=== PATIENT | female | born 2000 | race Caucasian/White ===

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

== ENCOUNTER → 2022-03-12 09:51 | Outpatient (BNV) | payer MEDICAID, SELFPAY | PROVIDERS: PCP Internal Medicine; Visit Provider Internal Medicine Medical Oncology | DX: D75.839 Thrombocytosis, unspecified (principal) | CPT/HCPCS: 99203; 99213 ==

== ENCOUNTER → 2023-05-13 09:27 | Outpatient (BNVA) | payer MEDICAID, SELFPAY | PROVIDERS: PCP Internal Medicine; Visit Provider Physician Assistant Surgical ==

== ENCOUNTER 2023-06-17 08:10 | Outpatient (AMB) | payer MEDICAID, SELFPAY ==
--- NOTE | 2023-06-17 08:11 | A.OFFVIS_ITS ---
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 9.30pm (dessert) Exercise: none Fluids: Coffee: 2/wk (Kacie Donuts), tea: none, soda: Regular Pepsi: a lot a day, juice: none, ETOH: 1 drink/week PFSH Medical History (Updated 06/17/23 @ 08:17 by Rafi Smith MD) Back pain Depression GERD (gastroesophageal reflux disease) Hypertension Morbid obesity Surgical History (Updated 06/17/23 @ 08:17 by Rafi Smith MD) Hx laparoscopic cholecystectomy Assessment & Plan Assessment & Plan (1) Morbid obesity: Code(s): E66.01 - Morbid (severe) obesity due to excess calories Plan: 1.? Plan for lap sleeve gastrectomy. If diaphragmatic or ventral hernias are present at time of surgery, these will be repaired laparoscopically as well. Risks and complications were discussed in detail including possible conversion to an open procedure, anastomotic leak, bleeding requiring transfusion, small cirilo wel obstruction, , DVT and pulmonary embolism, cardiac, or pulmonary complications, as cloth spreader complications such as anastomotic ulcer, insufficient weight loss and vitamin deficiencies. I emphasized the importance of close follow-up, adherence to instructions and good communication. 2. Nutritional counseling. Start with 2 Isoure INFUSION protein (buy at [employer], or [employer]) shakes (HALF scoop EACH in 8oz water) at 7am-9am and 10am-12pm, 1 protein bar (Zone Perfect protein bars, buy at [employer], ?[employer], [employer], or [employer]) at 2pm-4pm, dinner at 5pm (8 forks of protein and 8 forks of salad/vegetables) and one more protein bar after dinner at 7pm-9pm. Meal to include lean meat (beef, fish, pork, turkey, chicken), or bruneian yogurt, or egg whites, or beans with a salad with olive oil and fruits (berries, pears, apples, kiwi). Avoid salt, breads, potatoes, rice, pasta, desserts. 3. Each shake would be drunk slowly, like coffee in a period of 2 hours. 4. Cut each bar in 4 pieces and eat each piece in 30min ?to make each bar last 2 hours. 5. I emphasized the importance of measuring accurately the food portion and measure it when serving the food in plate 6. The meal portions include 8 full-size forks of meat and 8 full-size forks of salad. You always eat the meat portion but you can replace up to 5 forks for salad/vegetables with rice, potatoes or pasta, or a fruit ?if you like. The less you do it the better weight loss will be. 7. One full-size fork is what it can be scooped on the fork without falling aside and not what can be bit with the fork. Use regular forks like those you find in a typical restaurant. 8.? Please send me weight measurements as soon as possible and then once a week. Always include your diet and exercise plan. 9. When you join the Gym, start treadmill with an incline of 2.0 and speed of 3.0. Increase incline by 1 every 3 min to a max incline of 8.0, stay 3min at 8.0 and then return to 2.0 and repeat same steps until calorie goal is met. Goal is to burn 2000 calories per week on exercise, which means either 300 calories daily, or 400 calories 5 days per week, or 500 calories 4 days per week, or 650 calories 3 days per week. Start also weight exercises with 20-30lbs for chest/shoulders/abdomen and 40-50lbs for thighs doing 2 sets of 15 repetitions each. 10. Alternatively start walking outside daily, tracking calories with a goal of 300 calories per day, daily. Goal is to burn 2000 calories per week on active walking. 11. Alternatively purchase a stationary bike, elliptical or treadmill at home that can track calories. Let me know if you do so I can give you an exercise plan. 12.?It is important of avoiding and for at least 18 months postoperatively and has been discussed at the infosession. 13. Goal is to lose at least 1.5-2lbs per week 14. Goal to lose 10% of your weight before surgery, which is about 23lbs. Ultimate weight goal: 208lbs before surgery 15. Please follow the diet plan exactly without any change. If you don't like something about the plan or you feel hungry you need to communicate with me so I can help you revise the plan. You should not change the plan yourself. (2) Depression: Code(s): F32.A - Depression, unspecified (3) GERD (gastroesophageal reflux disease): Code(s): K21.9 - Gastro-esophageal reflux disease without esophagitis (4) Hypertension: Code(s): I10 - Essential (primary) hypertension (5) Back pain: Code(s): M54.9 - Dorsalgia, unspecified Orders: Orders Vitamin B12 and Folate Today E66.01 - Morbid (severe) obesity due to excess calories, I10 - Essential (primary) hypertension, K21.9 - Gastro-esophageal reflux disease without esophagitis, M54.9 - Dorsalgia, unspecified Comprehensive Met. Panel Today E66.01 - Morbid (severe) obesity due to excess calories, I10 - Essential (primary) hypertension, K21.9 - Gastro-esophageal reflux disease without esophagitis, M54.9 - Dorsalgia, unspecified C Reactive Protein Today E66.01 - Morbid (severe) obesity due to excess calories, I10 - Essential (primary) hypertension, K21.9 - Gastro-esophageal reflux disease without esophagitis, M54.9 - Dorsalgia, unspecified Ferritin Today E66.01 - Morbid (severe) obesity due to excess calories, I10 - E ssential (primary) hypertension, K21.9 - Gastro-esophageal reflux disease without esophagitis, M54.9 - Dorsalgia, unspecified Hemoglobin A1c Today E66.01 - Morbid (severe) obesity due to excess calories, I10 - Essential (primary) hypertension, K21.9 - Gastro-esophageal reflux disease without esophagitis, M54.9 - Dorsalgia, unspecified Insulin Today E66.01 - Morbid (severe) obesity due to excess calories, I10 - Essential (primary) hypertension, K21.9 - Gastro-esophageal reflux disease without esophagitis, M54.9 - Dorsalgia, unspecified IRON PROFILE Today E66.01 - Morbid (severe) obesity due to excess calories, I10 - Essential (primary) hypertension, K21.9 - Gastro-esophageal reflux disease without esophagitis, M54.9 - Dorsalgia, unspecified Lipid Panel Today E66.01 - Morbid (severe) obesity due to excess calories, I10 - Essential (primary) hypertension, K21.9 - Gastro-esophageal reflux disease without esophagitis, M54.9 - Dorsalgia, unspecified PTHI Today E66.01 - Morbid (severe) obesity due to excess calories, I10 - Essential (primary) hypertension, K21.9 - Gastro-esophageal reflux disease without esophagitis, M54.9 - Dorsalgia, unspecified TSH reflex Free T4 Today E66.01 - Morbid (severe) obesity due to excess calorie s, I10 - Essential (primary) hypertension, K21.9 - Gastro-esophageal reflux disease without esophagitis, M54.9 - Dorsalgia, unspecified Vitamin A Today E66.01 - Morbid (severe) obesity due to excess calories, I10 - Essential (primary) hypertension, K21.9 - Gastro-esophageal reflux disease without esophagitis, M54.9 - Dorsalgia, unspecified Vitamin B1 Today E66.01 - Morbid (severe) obesity due to excess calories, I10 - Essential (primary) hypertension, K21.9 - Gastro-esophageal reflux disease without esophagitis, M54.9 - Dorsalgia, unspecified Vitamin D 25-OH Total Today E66.01 - Morbid (severe) obesity due to excess calories, I10 - Essential (primary) hypertension, K21.9 - Gastro-esophageal reflux disease without esophagitis, M54.9 - Dorsalgia, unspecified Zinc Today E66.01 - Morbid (severe) obesity due to excess calories, I10 - Essential (primary) hypertension, K21.9 - Gastro-esophageal reflux disease without esophagitis, M54.9 - Dorsalgia, unspecified ECG 12 lead EKG Today E66.01 - Morbid (severe) obesity due to excess calories, I10 - Essential (primary) hypertension, K21.9 - Gastro-esophageal reflux disease without esophagitis, M54.9 - Dorsalgia, unspecified FL upper GI w air Today E66.01 - Morbid (severe) obesity due to excess calories, I10 - Essential (primary) hypertension, K21.9 - Gastro-esophageal reflux disease without esophagitis, M54.9 - Dorsalgia, unspecified Complete Blood Count Auto Diff Today E66.01 - Morbid (severe) obesity due to excess calories, I10 - Essential (primary) hypertension, K21.9 - Gastro- esophageal reflux disease without esophagitis, M54.9 - Dorsalgia, unspecified H Pylori Breath Test Today E66.01 - Morbid (severe) obesity due to excess calories, I10 - Essential (primary) hypertension, K21.9 - Gastro-esophageal reflux disease without esophagitis, M54.9 - Dorsalgia, unspecified US abdomen comp w elastography Today E66.01 - Morbid (severe) obesity due to excess calories, I10 - Essential (primary) hypertension, K21.9 - Gastro- esophageal reflux disease without esophagitis, M54.9 - Dorsalgia, unspecified XR chest 2V Today E66.01 - Morbid (severe) obesity due to excess calories, I10 - Essential (primary) hypertension, K21.9 - Gastro-esophageal reflux disease without esophagitis, M54.9 - Dorsalgia, unspecified Referrals Behavioral Health Referral E66.01 - Morbid (severe) obesity due to excess calories, I10 - Essential (primary) hypertension, K21.9 - Gastro-esophageal reflux disease without esophagitis, M54.9 - Dorsalgia, unspecified Nutrition/Dietitian Referral E66.01 - Morbid (severe) obesity due to excess calories, I10 - Essential (primary) hypertension, K21.9 - Gastro-esophageal reflux disease without esophagitis, M54.9 - Dorsalgia, unspecified Telehealth Telehealth Location of provider rendering services: practice address Location of patient: address on file Patient Identification confirmed using: Name, : Yes Telehealth method: voice only Patient verbally consented to treatment: Yes Patient verbally consented to billing insurance company: Yes Patient informed of any privacy concerns related to visit: Yes Minutes spent on Phone/Video with Pt.: 45 Coding Level of Care Code Tele New Pt Level 4 (27561) Diagnoses Morbid obesity E66.01 Depression F32.A GERD (gastroesophageal reflux disease) K21.9 Hypertension I10 Back pain M54.9 Time Spent (min) 45
[2023-06-17 08:27] VITALS: BP 120/69; BMI 40.9
== END 2023-06-17 08:51 | disposition home or self-care (01) ==
LOC: HO.HBS 08:10
PROVIDERS: Visit Provider Surgery
DX: E66.01 Morbid (severe) obesity due to excess calories (principal); F32.A Depression, unspecified; K21.9 Gastro-esophageal reflux disease without esophagitis; I10 Essential (primary) hypertension; M54.9 Dorsalgia, unspecified
CPT/HCPCS: 99204

== ENCOUNTER → 2023-06-17 08:10 | Outpatient (BNVA) | payer MEDICAID, SELFPAY | PROVIDERS: Visit Provider Surgery ==

== ENCOUNTER → 2023-07-17 08:02 | Outpatient (BNVA) | payer MEDICAID, SELFPAY | PROVIDERS: PCP Student in an Organized Health Care Education/Training Program; Visit Provider Surgery ==

== ENCOUNTER 2023-07-21 13:57 | Outpatient (AMB) | payer MEDICAID, SELFPAY ==
--- NOTE | 2023-07-21 13:51 | A.OFFVIS_ITS ---
Intake Intake Visit Reasons: VIDEO Initial Nutrition SWL Allergies No Known Allergies [No Known Allergies*] Allergy (Verified 06/17/23 08:56) HPI Nutrition Presentation Reason for consult elevated BMI Diet Assmnt Details Hasn't made any changes - reports she is struggling a lot with depression. She tends to skip meals all day, then eat a lot at night (reports emotional eating) . She is planning to purchase the protein shakes today and begin following her plan. I explained how skipping meals all day makes it harder to work on emotional eating. She has no questions or concerns today. Patient reports her phone has not been receiving phone calls, she has not received any text messages, voice mails, phone calls from our office., she reports she did not know about the classes. She shares she has 3 children, 5 year old, 2 years old, and 6 month old Dietary counseling reduction Who buys your food self Who prepares/cooks your food self Meal frequency regular: dinner and snacks (reports emotional eating at night ) and never: breakfast and lunch Lifestyle Emotional Eating Reports stress, depression and anxiety Diagnosis Nutrition problem #1 overweight/obesity As related to (etiology) #1 excess energy intake and physical inactivity As evidenced by (sign/symptom) #1 high BMI Monitoring/Goals Nutrition problem monitoring total energy intake, level of knowledge/skill, total PRO intake, total CHO intake and weight Outcome progress verbalized understanding Learning/Education Readiness to learn fair Stages of change preparation Educational materials provided Yes Most Recent Diabetes Results: Creatinine 0.68 mg/dL (0.5-1.4) 03/12/22 Blood Urea Nitrogen 11 mg/dL (9-16) 03/12/22 Sodium 138 mmol/L (135-145) 03/12/22 Potassium 4.5 mmol/L (3.3-5.1) 03/12/22 Chloride 105 mmol/L (96-108) 03/12/22 Carbon Dioxide 24 mmol/L (22-29) 03/12/22 Calcium 9.9 mg/dL (8.4-10.2) 03/12/22 AST 16 U/L (5-31) 03/12/22 ALT 14 U/L (0-31) 03/12/22 Total Protein 7.7 g/dL (6.5-8.0) 03/12/22 Albumin 4.3 g/dL (3.5-5.0) 03/12/22 PFSH Medical History (Updated 06/17/23 @ 08:56 by Sammie Quintanilla) Hypertension GERD (gastroesophageal reflux disease) Back pain Depression Morbid obesity Depression Anxiety Surgical History (Updated 06/17/23 @ 08:56 by Sammie Quintanilla) Hx laparoscopic cholecystectomy Hx of Hx of cholecystectomy Family History Mother Hx of anemia of chronic renal failure Paternal Grandmother History of anxiety History of depression History of arthritis Hx of diabetes mellitus Social History (System 06/17/23 @ 08:56 by Sammie Quintanilla) Household Members: Children Both parents involved: No Housing: Apartment Are you a primary career guidance technician to a significant other at home: No Do you presently have visiting nurse or other home services: No Alcohol intake: former Patient Tobacco Use Status: Never used Tobacco Substance Use Type: Marijuana service: No Current occupational status: unemployed Gender identity: Female Female Reproductive History Menstrual Age of Menarche: 13 Assessment & Plan Assessment & Plan (1) Morbid obesity: Code(s): E66.01 - Morbid (severe) obesity due to excess calories Patient Instructions: explained that she should start her nutrition plan marcin, then we can help her address challenges more effectively. I will discuss with catrina to attempt to reach pt again to discuss check list, follow-up with Dr. Smith future scheduling of appts. Patient shares she struggles with sig depression and will benefit from intake with Maye Nassar Telehealth Location of provider rendering services: practice address Location of patient: address on file Patient Identification confirmed using: Name, : Yes Telehealth method: voice only Patient verbally consented to treatment: Yes Patient verbally consented to billing insurance company: Yes Patient informed of any privacy concerns related to visit: Yes Minutes spent on Phone/Video with Pt.: 30 Coding Level of Care Code Nutr Indiv Intake (99683) Diagnoses Morbid obesity E66.01 Time Spent (min) 30
== END 2023-07-21 14:54 | disposition home or self-care (01) ==
LOC: HO.HBS 13:57
PROVIDERS: PCP Student in an Organized Health Care Education/Training Program; Visit Provider Dietitian, Registered
DX: E66.01 Morbid (severe) obesity due to excess calories (principal)

== ENCOUNTER → 2023-07-21 13:57 | Outpatient (BNVA) | payer MEDICAID, SELFPAY | PROVIDERS: PCP Student in an Organized Health Care Education/Training Program; Visit Provider Dietitian, Registered | DX: E66.01 Morbid (severe) obesity due to excess calories (principal) | CPT/HCPCS: 97802 ==

== ENCOUNTER 2024-04-20 18:49 | Outpatient (REF) | payer MEDICAID, SELFPAY ==
[2024-04-20 19:20] LABS: Appearance Urine Turbid; Glucose Urine UA Negative (Negative); Leukocyte Esterase Urine Small (1+) (Negative); Nitrite Urine Negative (Negative); PH 5.5 (5.0-9.0); Specific Gravity - Urine >= 1.030 (1.005-1.025); UMIC TRIGGER UACC YES; Urine Blood Negative (Negative); Urine Ketones Trace mg/dL (Negative); Urine Protein Trace mg/dL (Neg-Trace)
[2024-04-20 19:22] LABS: Color Urine Yellow
[2024-04-20 19:25] LABS: Bacteria Urine 1+ (None Seen); Hyaline Casts Urine 0-2 /LPF (0-2); RBC Urine 0-2 /HPF (0-2); UACC Culture Trigger YES
== END 2024-04-20 18:50 | disposition home or self-care (01) ==
LOC: HO.HHCLNP 18:49
PROVIDERS: Visit Provider General Practice
DX: N92.6 Irregular menstruation, unspecified (principal)
CPT/HCPCS: 81001; 87086

== ENCOUNTER 2024-07-04 09:14 | Outpatient (REF) | payer MEDICAID, SELFPAY ==
[2024-07-04 11:32] LABS: MANUAL DIFF FLAG NO
[2024-07-04 11:48] LABS: Basophils Percent Auto 0.3 % (0-2); Eosinophils Absolute Auto 0.5 X10*3/uL (0.0-0.4); Hematocrit 39.5 % (37.0-47.0); Hemoglobin 12.4 g/dl (12.0-16.0); Imm Gran Abs Auto 0.03 X10*3/uL (0.00-0.03); Imm Gran Pct Auto 0.3 % (0.0-0.4); Lymphocytes Absolute Auto 1.9 X10*3/uL (1.2-4.9); Lymphocytes Percent Auto 20.6 % (20-40); Mean Corpuscular HGB Conc 31.4 g/dl (31.0-35.0); Mean Corpuscular Hemoglobin 25.6 pg (27.0-33.0); Mean Corpuscular Volume 81.4 fL (80.0-98.0); Mean Platelet Volume 9.1 fL (9.4-12.3); Monocytes Absolute Auto 0.5 X10*3/uL (0.1-1.2); Monocytes Percent Auto 4.8 % (2-11); Neutrophils Absolute Auto 6.4 x10*3/uL (2.0-8.3); Platelet Count 499 X10*3/uL (160-400); Red Blood Count 4.85 X10*6/uL (4.20-5.50); White Blood Count 9.3 X10*3/uL (4.8-10.8)
[2024-07-04 11:59] LABS: Estimated Average Glucose 117 mg/dL; Hemoglobin A1c % 5.7 % (<6.0)
[2024-07-04 12:13] LABS: Alanine Aminotransferase 18 U/L (0-31); Albumin Level 4.3 g/dL (3.5-5.0); Alkaline Phosphatase 109 U/L (39-117); Anion Gap 12 (12-20); Aspartate Amino Transferase 19 U/L (5-31); Bilirubin Total 0.4 mg/dL (0.0-1.0); Blood Urea Nitrogen 13 mg/dL (9-16); Calcium 9.6 mg/dL (8.4-10.2); Carbon Dioxide 23 mmol/L (22-29); Chloride 106 mmol/L (96-108); Estimated Glomerular Filt Rate > 60; Glucose Random 92 mg/dL (60-115); Potassium 3.8 mmol/L (3.3-5.1); Sodium 137 mmol/L (135-145); Total Protein 8.1 g/dL (6.5-8.0)
[2024-07-04 12:29] LABS: Erythrocyte Sedimentation Rate 33 MM/HR (0-20)
== END 2024-07-04 09:15 | disposition home or self-care (01) ==
LOC: HO.HHCL 09:14
PROVIDERS: Visit Provider General Practice
DX: E66.01 Morbid (severe) obesity due to excess calories (principal)
CPT/HCPCS: 36415; 80053; 83036; 85025; 85652

== ENCOUNTER 2024-09-30 08:31 | Emergency (ER) | payer MEDICAID, SELFPAY ==
[2024-09-30 08:48] VITALS: BP 138/61; PULSE 82; RESP 16; TEMP 36.2; O2SAT 98; BMI 42.8
--- NOTE | 2024-09-30 09:19 | ED.SKABFB ---
HPI - Skin/Abscess/Foreign Bdy General Chief complaint: Skin/Abscess/Foreign Body Stated complaint: Infected facial piercing Time Seen by Provider: 09/30/24 09:07 Source: patient Mode of arrival: ambulatory Limitations: no limitations History of Present Illness ED Provider: Jabari Hermosillo PA-C HPI narrative: 24 year old female with a PMH of obesity, depression, GERD, and hypertension seen in the ED for concerns regarding pain at the site of a facial piercing. Reports they have had the piercing for approx 2 years but tried to change the jewelry 2 days ago and has been experiencing pain, swelling, and discharge at the site since. Describes pain as constant burning/pressure. Reports associated headache and chills. Denies fever, nausea, vomiting, abdominal pain, diarrhea, constipation. Denies chest pain, SOB, palpitations, generalized weakness. MD complaint: foreign body (facial piercing on left side of face) Onset (ago): day(s) (2) Location: face Quality: burning Pain Consistency: constant Relieving factors: none Exacerbating factors: none Associated symptoms: chills Treatments prior to arrival: none Related Data Home Medications ?Medication ?Instructions ?Recorded ?Confirmed sertraline 50 mg tablet 50 mg PO DAILY 05/13/23 medroxyprogesterone 150 mg/mL 150 mg IM [id number] 06/17/23 06/17/23 intramuscular suspension (Depo-Provera) sertraline 50 mg tablet 50 mg PO DAILY 06/17/23 06/17/23 Allergies Allergy/AdvReac Type Severity Reaction Status Date / Time No Known Allergies Allergy Verified 09/30/24 08:49 [No Known Allergies*] Review of Systems Review of Systems: Yes all other systems are reviewed and are negative PMFSH Past Medical History Medical History (Updated 09/30/24 @ 10:21 by KOURTNEY Swann) Hypertension GERD (gastroesophageal reflux disease) Back pain Depression Morbid obesity Depression Anxiety Surgical History (Updated 06/17/23 @ 08:56 by Sammie Quintanilla) Hx laparoscopic cholecystectomy Hx of Hx of cholecystectomy Family History Family History Mother Hx of anemia of chronic renal failure Paternal Grandmother History of anxiety History of depression History of arthritis Hx of diabetes mellitus Social History Social History (System 06/17/23 @ 08:56 by Sammie Quintanilla) Household Members: Children Housing: Apartment Are you a primary long term care phlebotomist to a significant other at home: No Do you presently have visiting nurse or other home services: No Alcohol intake: former Patient Tobacco Use Status: Never used Tobacco Substance Use Type: Marijuana Advance Directives: No Advance Directives Information Provided: Yes service: No Current occupational status: unemployed Gender identity: Female Physical Exam Vital Signs: Vital Signs: Last Vital Signs Temp 97.1 F 09/30/24 10:25 Pulse 82 09/30/24 10:25 Resp 16 09/30/24 10:25 BP 138/61 09/30/24 10:25 Pulse Ox 98 09/30/24 10:25 O2 Del Method Room Air 09/30/24 10:25 BMI result Body Mass Index 42.8 Appearance: Alert. Oriented X3. No acute distress. Head/face: head: normocephalic, atraumatic. Face: mild erythema at the site of piercing on left side of face; no discharge, swelling, bleeding is appreciated; no signs of infection to site are noted. Eyes: Pupils equal, round and reactive to light. ENT: Pharynx normal. No tonsillar swelling or exudate. Neck: Normal inspection. Neck supple. CVS: Normal heart rate and rhythm. Pulses normal. Respiratory: No respiratory distress. Breath sounds normal. Skin: Skin warm and dry. Normal skin color. Normal skin turgor. No rashes. Extremities: No lower extremity edema. No joint swelling. Neuro/psych: Oriented X 3. Grossly normal, non-focal. CN II-XII intact. Normal speech and cognition. Medications Administered Discontinued Medications Generic Name Dose Route Start Last Admin Trade Name Perryq PRN Reason Stop Dose Admin Bacitracin 1 appl 09/30/24 10:13 09/30/24 10:25 Bacitracin Oint 0.9 Gm Packet TOPICAL 09/30/24 10:14 1 appl ONCE ONE Administration Protocol Lidocaine HCl 5 ml 09/30/24 09:33 09/30/24 10:05 Lidocaine Hcl 2 % Mpf 5 Ml Vial INFILTRATI 09/30/24 09:34 Not Given ONCE ONE Lidocaine HCl 5 ml 09/30/24 10:03 09/30/24 10:05 Lidocaine Hcl 1 % Mpf 5 Ml Vial INFILTRATI 09/30/24 10:04 5 ml ONCE ONE Administration Medical Decision Making Medical Decision Making MDM Narrative: 24 year old female with a PMH of obesity, depression, GERD, and hypertension seen in the ED for concerns regarding pain at the site of a facial piercing. Reports they have had the piercing for approx 2 years but tried to change the jewelry 2 days ago and has been experiencing pain, swelling, and discharge at the site since. Describes pain as constant burning/pressure. Reports associated headache and chills. Denies fever, nausea, vomiting, abdominal pain, diarrhea, constipation. Denies chest pain, SOB, palpitations, generalized weakness. Upon inspection, there is no notable discharge, swelling, warmth, or sign of infection; the site appears mildly erythematous and is tender upon palpation. DDX - foreign body; given the presence of a known facial piercing. - skin infection; unlikely as physical exam is not indicative of infection; no discharge, excessive swelling, warmth - subcutaneous skin abscess; unlikely as physical exam is not indicative of abscess; no discharge, excessive swelling, warmth - cellulitis; unlikely as physical exam is not indicative of cellulitis/skin infection; no discharge, excessive swelling, warmth Plan: - area was cleansed, foreign body was removed, 2 sutures were placed to close wound. PT is educated on keeping area clean and dry. Stable for discharge Differential Diagnosis Differential Diagnoses: The differential diagnosis associated with the presentation includes as above External Record Review External record reviewed: Prior outpatient labs Prescription Management I considered prescription management with: Pain Medication and Antibiotic Critical Care Time Critical Care Time Critical Care Time: No Discharge Plan Discharge Clinical Impression: Retained foreign body of face Patient Disposition: Home, Self-Care Instructions: Soft Tissue Foreign Body (ED) Additional Instructions: There was no evidence of infection today, no need for oral antibiotics. The piercing was removed after a small incision was made in the face. To absorbable sutures were placed to close the wound. These will dissolve on their own. Keep the wound clean and covered. You can use topical bacitracin or antibiotic ointment 1 or 2 times per day If you develop new or worsening symptoms call 911 or come back to the ER for further evaluation. Prescriptions: No Action sertraline 50 mg tablet 50 mg PO DAILY sertraline 50 mg tablet 50 mg PO DAILY medroxyprogesterone [Depo-Provera] 150 mg/mL suspension 150 mg IM [id number] Referrals: Ofelia Padilla MD [Primary Care Provider] - Interventions: ED Discharge Assessment Last Done: 09/30/24 10:25 Discharge Date/Time: 09/30/24 10:28 Print Language: Belarusian
[2024-09-30] MEDS: Lidocaine HCl 1 % MPF 5 ML VIAL INFILTRATI (10:05)
[2024-09-30 10:25] VITALS: BP 138/61; PULSE 82; RESP 16; TEMP 36.2; O2SAT 98
[2024-09-30] MEDS: Bacitracin Oint 0.9 GM PACKET 1 APPL TOPICAL (10:25)
== END 2024-09-30 10:28 | disposition home or self-care (01) ==
PROVIDERS: Emergency Provider Emergency Medicine Emergency Medical Services; PCP General Practice
DX: S01.84XA Puncture wound with foreign body of other part of head, initial encounter (principal); W45.8XXA Other foreign body or object entering through skin, initial encounter; Y93.9 Activity, unspecified; Y92.9 Unspecified place or not applicable; Y99.9 Unspecified external cause status
CPT/HCPCS: 12011; 99282; 99284; J2003

== ENCOUNTER 2024-10-04 09:04 | Outpatient (REF) | payer MEDICAID, SELFPAY ==
[2024-10-04 09:35] LABS: Basophils Percent Auto 0.4 % (0-2); Eosinophils Absolute Auto 0.3 X10*3/uL (0.0-0.4); Eosinophils Percent Auto 2.6 % (0-4); Hemoglobin 12.1 g/dl (12.0-16.0); Imm Gran Abs Auto 0.03 X10*3/uL (0.00-0.03); Imm Gran Pct Auto 0.3 % (0.0-0.4); Lymphocytes Absolute Auto 2.4 X10*3/uL (1.2-4.9); Lymphocytes Percent Auto 25.3 % (20-40); MANUAL DIFF FLAG NO; Mean Corpuscular HGB Conc 31.8 g/dl (31.0-35.0); Mean Corpuscular Hemoglobin 25.6 pg (27.0-33.0); Mean Corpuscular Volume 80.3 fL (80.0-98.0); Mean Platelet Volume 8.5 fL (9.4-12.3); Monocytes Absolute Auto 0.3 X10*3/uL (0.1-1.2); Monocytes Percent Auto 3.6 % (2-11); Neutrophils Absolute Auto 6.5 x10*3/uL (2.0-8.3); Neutrophils Percent Auto 67.8 % (45-73); Platelet Count 471 X10*3/uL (160-400); Red Blood Count 4.73 X10*6/uL (4.20-5.50); White Blood Count 9.5 X10*3/uL (4.8-10.8)
[2024-10-04 09:53] LABS: Alanine Aminotransferase 17 U/L (0-31); Albumin Level 4.2 g/dL (3.5-5.0); Alkaline Phosphatase 102 U/L (39-117); Anion Gap 14 (12-20); Aspartate Amino Transferase 23 U/L (5-31); Bilirubin Total 0.5 mg/dL (0.0-1.0); Blood Urea Nitrogen 12 mg/dL (9-16); Calcium 9.6 mg/dL (8.4-10.2); Carbon Dioxide 27 mmol/L (22-29); Chloride 103 mmol/L (96-108); Estimated Glomerular Filt Rate > 60; Glucose Random 119 mg/dL (60-115); Sodium 140 mmol/L (135-145); Total Protein 8.2 g/dL (6.5-8.0)
[2024-10-04 10:59] LABS: Iron 35 mcg/dL (30-160); Percent Iron Saturation 11 % (15-50); Total Iron Binding Capacity 317 mcg/dL (228-428); Unsaturated Iron Binding 282 ug/dL
[2024-10-04 11:19] LABS: Ferritin 69 ng/mL (10-122)
== END 2024-10-04 09:05 | disposition home or self-care (01) ==
LOC: HO.LAB 09:04
PROVIDERS: PCP General Practice; Visit Provider Internal Medicine Medical Oncology
DX: D75.839 Thrombocytosis, unspecified (principal)
CPT/HCPCS: 36415; 80053; 82728; 83540; 85025

== ENCOUNTER 2025-07-10 15:02 | Outpatient (REF) | payer MEDICAID, SELFPAY ==
--- OUTSIDE RECORDS SUMMARY | 2025-07-10 14:15 | XMS_ITS | Encounter Summary ---
Author Organization [employer] Address [address] [facility] 7 [place] [address] Care Team Providers Care Mash Filter Operator Name Role Phone Ofelia Padilla MD Primary Care Provider [phone] Reason for Visit * Reason Comments Gynecologic Exam Encounter Details Date Type Department Care Team (Latest Contact Info) Description 07/10/2025 2:15 PM EDT Procedure Visit [facility] MEDICINE [address] [place], [place] [phone] Ofelia Padilla MD [address] [place] [address] Routine screening for STI (sexually transmitted infection) (Primary Dx); Screening for cervical cancer; Severe obesity (CMS/HCC); Prediabetes Social History Tobacco Use Types Packs/Day Years Used Date Smoking Tobacco: Former Cigarettes Passive Smoke Exposure: Current Smokeless Tobacco: Never Alcohol Use Standard Drinks/Week Comments Not Currently 0 (1 standard drink = 0.6 oz pur e alcohol) Alcohol Answer Date Recorded How often do you have a drink containing alcohol ? 1 11/29/2024 How many drinks containing a lcohol do you have on a typical day when you are drinking? 0 11/29/2024 How often do you have six or more drinks on one occasion? 0 11/29/2024 Depression Answer Date Recorded Patient Health Questionnaire-9 Score 17 11/29/2024 Patient Health Questionnaire-9 Score 17 11/29/2024 Last PHQ-9: Questionnaire Data Not on file 0 11/29/2024 Housing Stability Answer Date Recorded What is your housing situation today? I have carolyn barton 04/11/[address] you li ve. Do you have problems with any of the following? None of the above 04/11/2024 Food Insecurity Answer Date Recorded Within the past 12 months, y ou worried that your food would run out before you got money to buy more: Never True 04/11/2024 Within the past 12 months,th e food you bought just didn't last and you didn't have enough money to get more: Never True Transportation Answer Date Recorded In the past 12 months, has l ack of transportation kept you from medical appts, meetings, work or from getting things needed for daily living? Yes, it has kept me from medical appointments or getting medications. 04/20/2024 Utilities Answer Date Recorded In the past 12 months, has t he electric, gas, oil or water company threatened to shut off services in your home? No 04/20/2024 Depression Answer Date Recorded Patient Health Questionnaire-2 Score 6 11/29/2024 Internet Access Answer Date Recorded Internet Access Q1 No 06/27/2024 Internet Access Q2 My internet/Wi-Fi ac cess is not consistent or reliable;Internet/Wi-Fi access is not available where I live 06/27/2024 Comments No Sex and Gender Information Value Date Recorded Sex Assigned at Female 08/25/2022 10:21 AM EDT Legal Sex Female 10:21 AM EDT Gender Identity Female 08/18/2023 11:08 AM EDT Sexual Orientation Straight 08/18/2023 11 :08 AM EDT documented as of this encounter Last Filed Vital Signs Vital Sign Reading Time Taken Comments Blood Pressure 120/72 07/10/2025 2:39 PM EDT Pulse 100 07/10/2025 2:39 PM EDT Temperature 36.2 C (97.1 F) 07/10/2025 2:39 PM EDT Respiratory Rate 28 07/10/2025 2:39 PM EDT Oxygen Saturation - - Inhaled Oxygen Concentration - - Weight 117 kg (257 lb 6.4 oz) 07/10/2025 2:39 PM EDT Height 163.8 cm (5' 4.5 ) 07/10/2025 2:39 PM EDT Body Mass Index 43.5 07/10/2025 2:39 PM EDT documented in this encounter Plan of Treatment Scheduled Orders Name Type Priority Associated Diagnoses Order Schedule RPR (Monitor) with Reflex to Titer Lab Routine Routine screening for STI (sexually transmitted infection) Expected: 07/10/2025, Expires: 07/10/2026 HIV-1/2 Antigen and Antibodies, Fourth Generation, with Reflexes Lab Routine Routine screening for STI (sexually transmitted infection) Expected: 07/10/2025 (Approximate), Expires: 07/10/2026 Hepatitis C Antibody with Reflex to HCV, RNA, Quantitative, Real-Time PCR Lab Routine Routine screening for STI (sexually transmitted infection) Expected: 07/10/2025, Expires: 07/10/2026 Chlamydia/N. Gonorrhoeae RNA, TMA, Urogenitial Microbiology Routine Routine screening for STI (sexually transmitted infection) Expected: 07/10/2025 (Approximate), Expires: 07/10/2026 Bacterial Vaginosis Panel Microbiology Routine Screening for cervical cancer Ordered: 07/10/2025 Pap Smear Pathology and Cytology Routine Screening for cervical cancer Ordered: 07/10/2025 documented as of this encounter Procedures Procedure Name Priority Date/Time Associated Diagnosis Comments POCT GLUCOSE Routine 07/10/2025 4:02 PM EDT Prediabetes POCT GLYCATED HEMOGLOBIN, TOTAL Routine 07/10/2025 4:01 PM EDT Prediabetes documented in this encounter Results * POCT Glucose (07/10/2025 4:02 PM EDT) Glucose Blood, POC 109 60 - 200 mg/dL Comment:FASTING QC Media Lot # [id number] Lot# Expiration Date ,025 Blood Capillary blood specimen / Unknown 07/10/2025 4:02 PM EDT Ofelia Padilla MD POINT OF CARE TEST ENTER/EDIT ORDERABLES Final Result * POCT Hgb A1c (07/10/2025 4:01 PM EDT) Hemoglobin A1C 5.5 4.0 - 5.7 % QC Media Lot # [id number] Lot# Expiration Date 162,027 Blood 07/10/2025 4:01 PM EDT Ofelia Padilla MD POINT OF CARE TEST ENTER/EDIT ORDERABLES Final Result documented in this encounter Visit Diagnoses Diagnosis Routine screening for STI (sexually transmitted infection)- Primary Screening examination for venereal disease Screening for cervical cancer Screening for malignant neoplasm of the cervix Severe obesity (CMS/HCC) Morbid obesity Prediabetes Other abnormal glucose documented in this encounter Additional Health Concerns Assessment Noted Time PHQ-9 Depression Total Score: 17 025 9:48 AM EST documented as of this encounter Care Teams Mash Filter Operator Relationship Specialty Start Date End Date Ofelia Padilla MD [address] [place] [id number] PCP - General Family Medicine 04/20/24 documented as of this encounter
[2025-07-10 16:19] LABS: MANUAL DIFF FLAG NO
[2025-07-10 16:26] LABS: Hematocrit 35.8 % (37.0-47.0); Hemoglobin 11.6 g/dl (12.0-16.0); Imm Gran Abs Auto 0.04 X10*3/uL (0.00-0.03); Imm Gran Pct Auto 0.4 % (0.0-0.4); Lymphocytes Absolute Auto 2.9 X10*3/uL (1.2-4.9); Mean Corpuscular HGB Conc 32.4 g/dl (31.0-35.0); Mean Corpuscular Hemoglobin 26.2 pg (27.0-33.0); Mean Corpuscular Volume 80.8 fL (80.0-98.0); NRBC Abs Auto 0.000 X10*3/uL (0.0-0.012); NRBC Pct Auto 0.0 /100WBC (0.0-0.2); Platelet Count 500 X10*3/uL (160-400); Red Blood Count 4.43 X10*6/uL (4.20-5.50); White Blood Count 11.3 X10*3/uL (4.8-10.8)
[2025-07-10 16:57] LABS: Alanine Aminotransferase 16 U/L (0-31); Albumin Level 4.3 g/dL (3.5-5.0); Alkaline Phosphatase 115 U/L (39-117); Anion Gap 13 (12-20); Aspartate Amino Transferase 24 U/L (5-31); Blood Urea Nitrogen 14 mg/dL (9-16); Calcium 9.4 mg/dL (8.4-10.2); Carbon Dioxide 23 mmol/L (22-29); Chloride 106 mmol/L (96-108); Cholesterol 144 mg/dL (<200); Estimated Glomerular Filt Rate > 60; HDL Cholesterol 43 mg/dL (>40); Potassium 3.9 mmol/L (3.3-5.1); Sodium 138 mmol/L (135-145); Total Protein 7.9 g/dL (6.5-8.0); Triglycerides 76 mg/dL (<150)
[2025-07-10 17:00] LABS: Ferritin 38 ng/mL (10-122)
[2025-07-10 17:38] LABS: Reflex LDLD? No
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
--- OUTSIDE RECORDS SUMMARY | 2025-07-10 20:29 | XMS_ITS | Encounter Summary ---
Author Organization [employer] Address [address] [facility] [address]t [place] [address] Care Team Providers Care Film Mounter Name Role Phone Ofelia Padilla MD Primary Care Provider [phone] Reason for Visit * Reason Onset Date Comments chart prep 07/07/2025 Encounter Details Date Type Department Care Team ([facility] st Contact Info) Description 07/07/2025 Telephone [facility] MEDICINE [address] [place], [place] [phone] Ofelia Padilla MD [address] [place] [address] chart prep Social History Tobacco Use Types Packs/Day Years [...] encounter Miscellaneous Notes * Telephone Encounter - La Lehman [place] - 07/07/2025 11:43 AM EDT Chart Prep Labs: not applicable Images: not applicable Referrals: complete Vaccines due: Covid and Flu Screenings: STI screening Overdue care gaps: A1c, Glucose, SDOH, PHQ-9, and JING-7 documented in this encounter Plan of Treatment Not on file documented as of this encounter Visit Diagnoses Not on filedocumented in this encounter Additional Health Concerns Assessment Noted Time PHQ-9 Depression Total Score: 17 025 9:48 AM EST documented as of this encounter Care Teams Film Mounter Relationship Specialty Start Date End Date Ofelia Padilla MD [address] [place] [phone] PCP - General Family Medicine 04/20/24 documented as of this encounter
--- OUTSIDE RECORDS SUMMARY | 2025-07-10 20:29 | XMS_ITS | Encounter Summary ---
Author Organization [employer] Address [address] [facility] [address] [place] [address] Care Team Providers Care Manager Loan Name Role Phone Ofelia Padilla MD Primary Care Provider [phone] Encounter Details Date Type Department Care Team ([facility] st Contact Info) Description 07/06/2024 Orders Only [facility] MEDICINE [address] [place], [place] [phone] Ofelia Padilla MD [address] [place], [place] [phone] Depressive disorder (Primary Dx); Anxiety Social History Tobacco Use Types Packs/Day Years Used Date Smoking Tobacco: Some Days Cigarettes Passive Smoke Exposure: Current Smokeless Tobacco: Never Alcohol Use Standard Drinks/Week Comments Not Currently 0 (1 standard drink = 0.6 oz pur e alcohol) Depression Answer Date Recorded Patient Health Questionnaire-9 Score 0 04/20/2024 Patient Health Questionnaire-9 Score 0 04/20/2024 Last PHQ-9: Questionnaire Data Not on file 0 04/20/2024 Housing Stability Answer Date Recorded What is [...] Answer Date Recorded Patient Health Questionnaire-2 Score 0 04/20/2024 Internet Access Answer Date Recorded Internet Access [...] AM EDT documented as of this encounter Plan of Treatment Not on file documented as of this encounter Visit Diagnoses Diagnosis Depressive disorder- Primary Depressive disorder, not elsewhere classified Anxiety Anxiety state, unspecified documented in this encounter Additional Health Concerns Assessment Noted Time PHQ-9 Depression Total Score: 0 04/20/20 2:12 PM EDT documented as of this encounter Care Teams Manager Loan Relationship Specialty Start Date End Date Ofelia Padilla MD [address] [place] [address] PCP - General Family Medicine 04/20/24 documented as of this encounter
--- OUTSIDE RECORDS SUMMARY | 2025-07-10 20:29 | XMS_ITS | Encounter Summary ---
Author Organization [employer] Address [address] [facility] [address] [place] [address] Care Team Providers Care Licensed Sales Assistant Name Role Phone Ofelia Padilla MD Primary Care Provider [phone] Reason for Visit * Reason Onset Date Comments Nurse Triage 07/06/2024 Encounter Details Date Type Department Care Team ([facility] st Contact Info) Description 07/06/2024 Telephone [facility] MEDICINE [address] [place], [place] [phone] Ofelia Padilla MD [address] [place] [address] Nurse Triage Social History Tobacco Use Types [...] Telephone Encounter - Annamarie Gomez RN - 07/06/2024 9:51 AM EDT Triage call Pt reports concerns about abnormal lab tests. Pt reports looking up symptoms of abnormal blood tests and Pt reports, dizziness, weakness, tired all the time, blurry vision at times. No energy and Pt is concerned that Pt may have lupus. Pt has apt with PCP which is a follow up regarding PE OV 04/20/24. Apt is 07/22/24 and Pt is aware of apt. Pt is advised to continue to drink adequate liq uids, rest when possible and if symptoms become much worse seek evaluation in ED closest to Pt. Pt agrees with this plan. Pt will call back if needed. Protocol Used: Dizziness (Adult) Protocol-Based Disposition: Home Care Positive Triage Question: * Dizziness caused by sudden or prolonged standing * All higher-acuity triage questions were negative Care Advice Discussed: * Reasons To Call Back - After 2 hours of rest and fluids and you are still feeling dizzy - You pass out (faint) or are too weak to stand - You become worse * Telephone Encounter - Samantha Maldonado - 07/06/2024 9:14 AM EDT Symptom: Dizziness, weakness and vision changes Outcome: Schedule an appointment to be seen within 24 hours Reason: Caller denied all higher acuity questions The caller accepted this outcome documented in this encounter Plan of Treatment Not on file documented as of this encounter Visit Diagnoses Not on filedocumented in this encounter Additional Health Concerns Assessment Noted Time PHQ-9 Depression Total Score: 0 04/20/20 24 2:12 PM EDT documented as of this encounter Care Teams Licensed Sales Assistant Relationship Specialty Start Date End Date Ofelia Padilla MD [address] [place] [address] PCP - General Family Medicine 04/20/24 documented as of this encounter
--- OUTSIDE RECORDS SUMMARY | 2025-07-10 20:29 | XMS_ITS | Clinical Summary ---
Author Organization [employer] Address [address] [facility] [address] [place] [address] Care Team Providers Care Senior Caregiver Name Role Phone Ofelia Padilla MD Primary Care Provider [phone] Allergies No known active allergies Medications * This document contains information received from the source organization and may not represent a complete record from that organization. sertraline (Zoloft) 100 MG tabletIndicatio ns:Depressive disorder,Anxiet y Take 1 tablet (100 mg) by mouth Once per day. 90 tablet 3 4 Active acetaminophen (Tylenol) 325 MG tablet Take 2 tablets by mouth every 6 (six) hours if needed for pain. 4 Active Aspirin Low Dose 81 MG EC tablet Take 1 tablet by mouth Once per day. 4 Active ferrous sulfate 325 (65 Fe) MG tablet Take 1 tablet by mouth Once per day. 4 Active ibuprofen 200 MG tablet Take 2 tablets by mouth every 6 (six) hours if needed for pain. 4 Active sertraline (Zoloft) 50 MG tablet Take 1 tablet (50 mg) by mouth Once per day. Take with the 100mg tablet for total dose of 150mg 90 tablet 3 5 11/29/19 26 Active hydrOXYzine HCl (Atarax) 25 MG tablet Take 1 tablet (25 mg) by mouth if needed at bedtime for anxiety (insomnia). 90 tablet 2 5 08/26/20 25 Active phentermine 30 MG capsuleIndicati ons:Severe obesity (CMS/HCC) Take 1 capsule (30 mg) by mouth before breakfast. 30 capsule 5 08/09/20 25 Active phentermine 15 MG capsule Take 1 capsule (15 mg) by mouth before breakfast. 30 capsule 2 5 07/10/20 25 Discontinu ed(Dose adjustment ) Active Problems Patient Care Coordination No te Formatting of this note migh t be different from the original. C3/CM Cesilia Ron RN Problem Noted Date Diagnosed Date IFG (impaired fasting glucose) 10/13/2024 Assessment & Plan (10/13/2024 11:40 AM EST): I gave her information for lifestyle modifications. Check TSH and lipid profile. Counseled re more frequent low calorie/carb meals. Encouraged physical activity as tolerated. FU with PCP. 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 Does not see a specialist. Marijuana user 04/18/2024 Overview (04/18/2024): Counselled against MJ use in Severe obesity 04/18/2024 PTSD (post-traumatic stress disorder) 02/26/2024 Assessment & Plan (03/01/2024 9:35 AM EDT): PLAN: (check all that apply) Behavioral Health Integration Plan Internal PCP External OP therapy referral and OP psychiatry Referral Patient Self Plan Patient to reach out to [facility] team as needed, Comply with medication , Patient to engage in OP therapy , Patient to reach out to [facility] as needed, and Patient to follow-up with external team Pain in right knee 03/12/2023 Depressive disorder 03/12/2023 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 Anxiety 12/31/2016 Resolved Problems Problem Noted Date Diagnosed Date Resolved Date History of pre-eclampsia in prior , currently 04/18/2024 07/22/2024 Encounters Date Type Department Care Team Description 07/10/2025 2:15 PM EDT Procedure Visit [facility] [address] [place] [phone] Ofelia Padilla MD Routine screening for STI (sexually transmitted infection) (Primary Dx); Screening for cervical cancer; Severe obesity (CMS/HCC); Prediabetes 07/10/2025 Travel 07/07/[address] [phone] Ofelia Padilla MD chart prep 07/03/2025 Travel 04/14/[address] [phone] Ofelia Padilla MD No Show 04/12/[address] [phone] Ofelia Padilla MD CHART PREP from Last 3 Months Immunizations Immunization Administration Dates Next Due DTaP 11/30/2009, 4,01/18/2003,11/16,2002 HPV 9-Valent 12/12/2016,10/24/2015,08/23/2015 Hep A, ped/adol, 2 dose 12/12/2016,08/23/2015 Hep B, Adolescent or Pediatric 01/18/2003,2002,2002 Hib (HbOC) 01/18/2003,2002,2002 IPV 12/10/2006, 3,2002,09/16 Influenza injectable quadriv alent preservative free 11/05/2020,09/28/2017,12/12/2016,08/23 MMR 12/10/2006,07/26/2003 Meningococcal MCV4P ACYW-135 06/05/2020,08/23/20 Pneumococcal Conjugate PCV 7 01/18/2003,11/16/19 03,2002 TD (adult), 2 Lf tetanus tox oid, preservative free, adsorbed 12/04/2022 Td (adult), unspecified 12/04/2022 Tdap 04/19/2021,07/28/2017,08/23/2015 Varicella 12/10/2006,07/26/2003 Social History Tobacco Use Types Packs/Day Years Used Date Smoking Tobacco: Former Cigarettes Passive Smoke Exposure: Current Smokeless Tobacco: Never Tobacco Cessation:Counseling Given: Not Answered Alcohol Use Standard Drinks/Week Comments Not Currently [...] the past 12 months, has t he [employer], gas, oil or water company threatened to [...] Orientation Straight 08/18/2023 11 :08 AM EDT Last Filed Vital Signs Vital Sign Reading Time Taken Comments Blood Pressure 120/72 07/10/2025 2:39 PM EDT Pulse 100 07/10/2025 2:39 PM EDT Temperature 36.2 C (97.1 F) 07/10/2025 2:39 PM EDT Respiratory Rate 28 07/10/2025 2:39 PM EDT Oxygen Saturation 99% 11/29/2024 9:40 AM EST Inhaled Oxygen Concentration - - Weight 117 kg (257 lb 6.4 oz) 07/10/2025 2:39 PM EDT Height 163.8 cm (5' 4.5 ) 07/10/2025 2:39 PM EDT Body Mass Index 43.5 07/10/2025 2:39 PM EDT Plan of Treatment Health Maintenance Due Date Last Done Comments Family Planning (PISQ) 2017 Meningococcal B Vaccine (1 of 2 - Standard) 2018 Chlamydia and Gonorrhea Screening 03/03/2023 03/03/2022 Pap Smear 2023 SDOH Screening 04/20/2025 04/20/2024 Depression Monitoring 05/29/2025 11/29/2024, 025 COVID-19 Vaccine ( season) 2025 03/25/2022, 03/03/2022 Influenza Vaccine (#1) 2025 , 09/28/2017, 12/12/2016, Additional history exists Alcohol/Substance Use Screening 11/29/2025 11/29/2024 Disability Screening 07/03/2026 07/03/2025 Diabetes: Hemoglobin A1C 07/10/2026 025, 10/13/2024, 07/04/2024, Additional history exists Tobacco Screening 07/10/2026 07/10/2025 Lipid Panel 07/10/2030 07/10/2025, 03/03/2022 DTaP/Tdap/Td Vaccines (11 - Td or Tdap) 12/04/2032 12/04/2022, 12/04/2022, 04/19/2021, Additional history exists Zoster Vaccines (1 of 2) 2052 RSV Patients and Patients Aged 60 years or older (1 - 1-dose 75+ series) 2077 HIB Vaccines Aged Out 01/18/2003, 10/27, 2002 No longer eligible based on patient's age to complete this topic Hepatitis B Vaccines Completed 01/18/2003, 2002, 2002 Pneumococcal Vaccine: Pediatrics (0 to 5 Years) and At-Risk Patients (6 to 49) Years Aged Out 01/18/2003, 2002, 2002 No longer eligible based on patient's age to complete this topic IPV Vaccines Completed 12/10/2006, 12/25, 2002, Additional history exists HPV Vaccines Completed 12/12/2016, 09/27, 08/23/2015 Hepatitis A Vaccines Completed 12/12/2016, 08/23/20 15 Meningococcal Vaccine Completed 06/05/2020, 015 HIV Screening Completed 12/10/2020 Hepatitis C Screening Completed 12/10/2020 RSV under 20 months Aged Out No longe r eligible based on patient's age to complete this topic Rotavirus Vaccines Aged Out No longer eligible based on patient's age to complete this topic Procedures Procedure Name Priority Date/Time Associated Diagnosis Comments POCT GLUCOSE Routine 07/10/2025 4:02 PM EDT Prediabetes POCT GLYCATED HEMOGLOBIN, TOTAL Routine 07/10/2025 4:01 PM EDT Prediabetes FERRITIN Routine 07/10/2025 3:13 PM EDT COMPREHENSIVE METABOLIC PANEL Routine 07/10/2025 3:13 PM EDT CBC WITH AUTO DIFFERENTIAL Routine 07/10/2025 3:13 PM EDT LIPID PANEL WITH REFLEX TO DIRECT LDL Routine 07/10/2025 3:13 PM EDT IFG (impaired fasting glucose) TSH W/REFLEX TO FT4 Routine 07/10/2025 3 :13 PM EDT IFG (impaired fasting glucose) HEPATIC FUNCTION PANEL Routine 3:13 PM EDT IFG (impaired fasting glucose) ZZZ HISTORICAL CHLAMYDIA/N. GONORRHOEAE RNA, TMA, UROGENITAL Routine 03/03/2022 11:25 AM EDT ZZZ HISTORICAL HIV AB/AG Routine 12/10/2020 11:10 AM EST from Last 3 Months or Most Recently Relevant to Health Maintenance Results * POCT Glucose (07/10/2025 4:02 PM EDT) Glucose Blood, POC 109 60 - 200 mg/dL Comment:FASTING QC Media Lot # [id number] Lot# Expiration Date Blood Capillary blood specimen / Unknown 07/10/2025 4:02 PM EDT Ofelia Padilla MD POINT OF CARE TEST ENTER/EDIT ORDERABLES Final Result * POCT Hgb A1c (07/10/2025 4:01 PM EDT) Pathologist [facility] Hemoglobin A1C 5.5 4.0 - 5.7 % QC Media Lot # [id number] Lot# Expiration Date , Blood 07/10/2025 4:01 PM EDT Ofelia Padilla MD POINT OF CARE TEST ENTER/EDIT ORDERABLES Final Result * TSH with Reflex to Free T4 (07/10/2025 3:13 PM EDT) TSH reflex Free T4 1.32 0.32 - 4.0 uIU/mL [facility] Blood 07/10/2025 3:13 PM EDT 07/10/2025 4:08 PM EDT Olimpia Rose MD LAB BLOOD ORDERABLES Fin al Result Performing Organization Address City/[facility] Co de Phone Number [facility] [address] [place] [phone] * Lipid Panel with Reflex to Direct LDL (07/10/2025 3:13 PM EDT) Triglycerides 76 <150 mg/dL [facility] Comment:Desirable Triglyceri de: less than 150 mg/dLBorderline High Triglyceride 150-199 mg/dLHigh Triglyceride: 200-499 mg/dLVery High Triglyceride: greater than or equal to 5OO mg/dL Cholesterol 144 <200 mg/dL [facility] Comment:Desirable Cholestero l: less than 200 mg/dLBorderline High Cholesterol: 200-239 mg/dLHigh Cholesterol: greater than 239 mg/dL LDL Cholesterol Calculated 86 <100 mg/dL [facility] Comment:Desirable LDL: less than 100 mg/dLNear Optimal/Above Optimal LDL: 110- 129 mg/dLBorderline High LDL: 130-159 mg/dLHigh LDL: 160-189 mg/dLVery High LDL: greater than or equal to 190 mg/dL HDL Cholesterol 43 >40 mg/dL [facility] Comment:Desirable HDL: great er than 40 mg/dL Note: This HDL assay may give artificially low results in patients with liver disease. Blood 07/10/2025 3:13 PM EDT 07/10/2025 4:08 PM EDT Olimpia Rose MD LAB BLOOD ORDERABLES Fin al Result Performing Organization Address [facility]/ZIP Co de Phone Number [facility] [address] [place] [address] [phone] * (ABNORMAL) CBC auto differential (07/10/2025 3:13 PM EDT) White Blood Count 11.3(H) 4.8 - 10.8 X10*3/uL [facility] Red Blood Count 4.43 4.20 - 5.50 X10*6/uL [facility] Hemoglobin 11.6(L) 12.0 - 16.0 g/dl [facility] Hematocrit 35.8(L) 37.0 - 47.0 % [facility] Mean Corpuscular Volume 80.8 80.0 - 98.0 fL [facility] Mean Corpuscular Hemoglobin 26.2(L) 27.0 - 33.0 pg [facility] Mean Corpuscular HGB Conc 32.4 31.0 - 35.0 g/dl [facility] Red Cell Distribution Width 15.6 11.0 - 16.0 % [facility] Platelet Count 500(H) 160 - 400 X10*3/uL [facility] Mean Platelet Volume 8.9(L) 9.4 - 12.3 fL [facility] Neutrophils Percent Auto 64.5 45 - 73 % [facility] Imm Gran Pct Auto 0.4 0.0 - 0.4 % [facility] Lymphocytes Percent Auto 25.9 20 - 40 % [facility] Monocytes Percent Auto 5.5 2 - 11 % [facility] Eosinophils Percent Auto 3.4 0 - 4 % [facility] Basophils Percent Auto 0.3 0 - 2 % [facility] NRBC Pct Auto 0.0 0.0 - 0.2 /100WBC [facility] Neutrophils Absolute Auto 7.3 2.0 - 8.3 x10*3/uL [facility] Imm Gran Abs Auto 0.04(H) 0.00 - 0.03 X10*3/uL [facility] Lymphocytes Absolute Auto 2.9 1.2 - 4.9 X10*3/uL [facility] Monocytes Absolute Auto 0.6 0.1 - 1.2 X10*3/uL [facility] Eosinophils Absolute Auto 0.4 0.0 - 0.4 X10*3/uL [facility] Basophils Absolute Auto 0.0 0.0 - 0.2 X10*3/uL [facility] NRBC Abs Auto 0.000 0.0 - 0.012 X10*3/uL [facility] 07/10/2025 3:13 PM EDT 07/10/2025 4:08 PM EDT us Generic External Data Provider LAB BLOOD ORDERAB LES Final Result Performing Organization Address [facility] Co de Phone Number [facility] [address] [place] [phone] * Ferritin (07/10/2025 3:13 PM EDT) Ferritin 38 10 - 122 ng/mL [facility] 07/10/2025 3:13 PM EDT 07/10/2025 4:08 PM EDT us Generic External Data Provider LAB BLOOD ORDERAB LES Final Result Performing Organization Address [facility] Co de Phone Number [facility] [address] [place] [phone] * Hepatic Function Panel (07/10/2025 3:13 PM EDT) Bilirubin, Direct <0.2 0.0 - 0.5 mg/dL [facility] Blood Venous blood specimen / Unknown 07/10/2025 3:13 PM EDT 07/10/2025 4:08 PM EDT us Olimpia Rose MD LAB BLOOD ORDERABLES Fin al Result Performing Organization Address [facility] Co de Phone Number [facility] [address] [place] [phone] * Comprehensive Metabolic Panel (07/10/2025 3:13 PM EDT) Sodium 138 135 - 145 mmol/L [facility] Potassium 3.9 3.3 - 5.1 mmol/L [facility] Chloride 106 96 - 108 mmol/L [facility] Carbon Dioxide 23 22 - 29 mmol/L [facility] Anion Gap 13 12 - 20 [facility] Urea Nitrogen (BUN) 14 9 - 16 mg/dL [facility] Creatinine, Serum 0.59 0.5 - 1.4 mg/dL [facility] Estimated Glomerular Filt Rate >60 [facility] Comment:Chronic Kidney Disea se: Estimated GFR < 60 mL/min/1.73v6Xpobrs Kidney Disease: Estimated GFR < 15 mL/min/1.73m2 Glucose 87 60 - 115 mg/dL [facility] Calcium 9.4 8.4 - 10.2 mg/dL [facility] Bilirubin, Total 0.2 0.0 - 1.0 mg/dL [facility] Aspartate Amino Transferase 24 5 - 31 U/L [facility] Alanine Aminotransferase 16 0 - 31 U/L [facility] Total Protein 7.9 6.5 - 8.0 g/dL [facility] Albumin Level 4.3 3.5 - 5.0 g/dL [facility] Alkaline Phosphatase 115 39 - 117 U/L [facility] 07/10/2025 3:13 PM EDT 07/10/2025 4:08 PM EDT us Generic External Data Provider LAB BLOOD ORDERAB LES Final Result [facility] [address] [place] [phone] * CHLAMYDIA/N. GONORRHOEAE RNA, TMA, UROGENITAL (03/03/2022 11:25 AM EDT) Chlamydia trachomatis RNA, TMA, Urogenital NOT DETECTED NOT DETECTED [facility] COMMENT SEE COMMENT [facility] Comment: The analytical performance characteristics of this assay, when used to test SurePath(TM) specimens have been determined by [employer]. The modifications have not been cleared or approved by the FDA. This assay has been validated pursuant to the CLIA regulations and is used for clinical purposes. For additional information, please refer to https://education.[employer]/faq/HXC716 (This link is being provided for information/ educational purposes only.) Neisseria gonorrhoeae RNA, TMA, Urogenital NOT DETECTED NOT DETECTED [facility] 03/03/2022 11:2 5 AM EDT Radha Mccann MD HISTORICAL/NON ORDERABLE LAB S Final Result Performing Organization Address [facility] Co de Phone Number [facility] [address] * HIV AB/AG (12/10/2020 11:10 AM EST) Pathologist [facility] HIV AB/AG Nonreactive Nonreactive [facility] Comment: HIV-1 p24 Ag and/or HIV-1/HIV-2 Ab not detected. A test result that is nonreactive does not exclude the possibility of exposure to or infection with HIV-1 and/or HIV-2. Nonreactive results in this assay for individuals with prior exposure to HIV-1 and/or HIV-2 may be due to antigen and antibody levels that are below the limit of detection of this assay. The [employer] Admitting Supervisor HIV Ag/Ab Combo assay result and supplemental assay results should be interpreted in conjunction with the patient's clinical presentation, history and other laboratory results. If the results are inconsistent with clinical evidence, additional testing is suggested to confirm the result. Hepatitis C Antibody Nonreactive Nonreactive [facility] Comment: Antibodies to HCV not detected; does not exclude early acute HCV infection. Hepatitis B Surface Antigen Negative Negative [facility] 12/10/2020 11:1 0 AM EST Monica Provider HISTORICAL/NON ORDERABLE LABS Final Result Performing Organization Address [facility] de Phone Number [facility] [address] from Last 3 Months or Most Recently Relevant to Health Maintenance Insurance [facility] C3 Care Teams Senior Caregiver Relationship Specialty Start Date End Date Ofelia Padilla MD [address] [place] [phone] PCP - General Family Medicine 04/20/24
--- OUTSIDE RECORDS SUMMARY | 2025-07-10 20:29 | XMS_ITS | Encounter Summary ---
Author Organization [employer] Address [address] [place] [address] Care Team Providers Care Motor Electrician Name Role Phone Ofelia Padilla MD Primary Care Provider [phone] Encounter Details Date Type Department Care Team (Latest Contact Info) Description 07/10/2025 Travel Social History Tobacco Use Types Packs/Day Years [...] documented as of this encounter Care Teams Motor Electrician Relationship Specialty Start Date End Date Ofelia Padilla MD [address] [place] [phone] PCP - General Family Medicine 04/20/24 documented as of this encounter
--- OUTSIDE RECORDS SUMMARY | 2025-07-10 20:29 | XMS_ITS | Encounter Summary ---
Author Organization [employer] Address [address] [facility] [address]t [place] [address] Care Team Providers Care Ophthalmology Surgical Technician Name Role Phone Ofelia Padilla MD Primary Care Provider Reason for Visit * Reason Comments Med Refill Encounter Details Date Type Department Care Team ([facility] st Contact Info) Description 11/22/2024 Refill [facility] [address], [place] [phone] Ofelia Padilla MD [address] [place], [place] [phone] Social History Tobacco Use Types Packs/Day Years [...] documented as of this encounter Care Teams Ophthalmology Surgical Technician Relationship Specialty Start Date End Date Ofelia Padilla MD [address] [place] [address] PCP - General Family Medicine 04/20/24 documented as of this encounter
--- OUTSIDE RECORDS SUMMARY | 2025-07-10 20:29 | XMS_ITS | Encounter Summary ---
Author Organization [employer] Address [address] [facility] [address] [place] [address] Care Team Providers Care Nurse Specialist Name Role Phone Ofelia Padilla MD Primary Care Provider [phone] Reason for Visit * Reason Onset Date Comments Med Refill 09/18/2024 Encounter Details Date Type Department Care Team ([facility] st Contact Info) Description 09/18/2024 Refill [facility] [address] [place], [place] [phone] Ofelia Padilla MD [address] [place] [address] Weight loss Social History Tobacco Use Types Packs/Day Years [...] as of this encounter Visit Diagnoses Diagnosis Weight loss Loss of weight documented in this encounter Additional Health Concerns Assessment Noted Time PHQ-9 Depression Total Score: 0 04/20/20 24 2:12 PM EDT documented as of this encounter Care Teams Nurse Specialist Relationship Specialty Start Date End Date Ofelia Padilla MD [address] [place] [phone] PCP - General Family Medicine 04/20/24 documented as of this encounter
[2025-07-10 22:42] LABS: Bacterial Vaginosis PCR POSITIVE (Negative); Candida Group PCR NOT DETECTED (Not Detect); Candida glab krusei PCR NOT DETECTED (Not Detect); Trichomonas vaginalis PCR NOT DETECTED (Not Detect)
[2025-07-10 23:13] LABS: CT PCR NOT DETECTED (Not Detect.); NG PCR NOT DETECTED (Not Detect.)
[2025-07-11 08:58] LABS: HIV Num 1 0.06 S/CO (0.00-0.99); ~HepC Num1 0.13 S/CO (0.00-0.79); ~Hepatitis C Antibody Nonreactive (Nonreactive)
== END 2025-07-10 15:03 | disposition home or self-care (01) ==
LOC: HO.HHCL 15:02
PROVIDERS: Internal Medicine; PCP General Practice; Referring Provider Internal Medicine Medical Oncology; Visit Provider General Practice
DX: R73.01 Impaired fasting glucose (principal); D75.839 Thrombocytosis, unspecified; Z12.4 Encounter for screening for malignant neoplasm of cervix; Z11.59 Encounter for screening for other viral diseases; Z11.8 Encounter for screening for other infectious and parasitic diseases; Z11.3 Encounter for screening for infections with a predominantly sexual mode of transmission
CPT/HCPCS: 36415; 80053; 80061; 80076; 81515; 82248; 82728; 82784; 84443; 85025; 86334; 86592; 86803; 87389; 87491; 87591; 87626; 88175